=== PATIENT | female | born 1995 | race Caucasian/White ===

== ENCOUNTER 2019-01-12 04:10 | Emergency (ER) | payer SELFPAY ==
[~2019-01-12] VITALS: Ht 170.2 cm; Wt 73.0 kg
[2019-01-12 04:19] VITALS: BP 122/73
--- NOTE | 2019-01-12 04:21 | NUR ---
PATIENT REFUSED TO PROVIDE URINE
--- NOTE | 2019-01-12 04:23 | NUR ---
PT AMBULATED TO ER BED 02
--- NOTE | 2019-01-12 04:25 | NUR ---
23 Y/O F, 32 WEEKS , PRESENTED TO ED WITH C/O DIFFICULTY SWALLOWING S/P INGESTION OF A BONE AT 1900 YESTERDAY. AAOX4. PER PT "I WAS EATING CHICKEN NUGGETS AND IT HAD A BONE IN IT. I'M WORRIED BECAUSE I'M AND I COUGHED UP BLOOD." 6/10 PAIN, ONLY WHEN SWALLOWING. NO FOREIGN OBJECT NOTED IN BACK OF THROAT. PT APPEARS TO BE IN NO APPARENT DISTRESS. SPEECH CLEAR AND COHERENT. O2 SATURATION 100% ON RA. BILATERAL LUNG PEÑA CLEAR. BEDRAIL X1 UP. BED IN LOCKED POSITION. WILL CONTINUE TO MONITOR.
--- NOTE | 2019-01-12 05:05 | NUR ---
PT TAKEN TO RAD VIA WHEELCHAIR
[2019-01-12 06:05] VITALS: BP 118/76
--- NOTE | 2019-01-12 06:05 | NUR ---
PT SEEN SITTING UPRIGHT. VSS. WILL CONTINUE TO MONITOR.
--- NOTE | 2019-01-12 06:08 | NUR ---
Patient discharged with v/s stable. Written and verbal after care instructions given and explained. Patient verbalized understanding. Ambulatory with steady gait. All questions addressed prior to discharge. Advised to follow up with PMD and consume clear liquids for a few days.
== END 2019-01-12 06:08 | disposition home or self-care (01) ==
LOC: MED 04:10
DX: O26.893 Other specified pregnancy related conditions, third trimester (principal); R07.0 Pain in throat; R05 Cough; Z3A.32 32 weeks gestation of pregnancy
CPT/HCPCS: 70360; 99283